=== PATIENT | female | born 1955 | race Caucasian/White ===

== ENCOUNTER 2017-01-21 16:07 | Inpatient (IN) | payer MEDICAID ==
[~2017-01-21] VITALS: Ht 157.5 cm; Wt 102.8 kg
[2017-01-21] MEDS ORDERED: SODIUM CHLORIDE 0.9% 1,000 ML IV ONE (16:42)
[2017-01-21] MEDS ORDERED: SODIUM CHLORIDE 0.9% 1,000ML IVBOLUS ONE (17:00)
[2017-01-21 17:20] LABS: BLOOD UREA NITROGEN 40 mg/dL (7-18)
[2017-01-21 17:29] LABS: IS PT STATUS REG ER OR PRE ER? YES
[2017-01-21 17:35] LABS: DIFF TOTAL CELLS COUNTED 100 CELL DIFF
[2017-01-21 17:36] LABS: VERIFY COUNTS? YES
[2017-01-21 17:37] LABS: ANISOCYTOSIS 1+; HYPOCHROMIA 2+; MICROCYTOSIS 1+; OVALOCYTES 1+; POLYCHROMASIA 1+
[2017-01-21] MEDS ORDERED: NS + 20MEQ KCL 1,000 ML IV SCH (19:23)
[2017-01-21] MEDS ORDERED: GUAIFENESIN/DM 200-20MG, 10ML UDC PO PRN (19:30)
[2017-01-21] MEDS ORDERED: POLYETHYLENE GLYCOL 17 GM PACKET PO PRN (19:30)
[2017-01-21] MEDS ORDERED: ONDANSETRON 2MG/ML, 2ML IVPush PRN (19:30)
[2017-01-21] MEDS ORDERED: morphine SULFATE 10 MG/ML, 1ML IVPush PRN (19:30)
[2017-01-21] MEDS ORDERED: ACETAMINOPHEN 325 MG TABLET PO PRN (19:30)
[2017-01-21] MEDS ORDERED: DOCUSATE 100 MG CAPSULE PO PRN (19:30)
[2017-01-21] MEDS ORDERED: HYDROcodone/APAP 5/325 TABLET PO PRN (19:30)
[2017-01-21] MEDS ORDERED: NAPR500T PO (19:54)
[2017-01-21] MEDS ORDERED: DIPH25CA61 PO (19:54)
[2017-01-21] MEDS ORDERED: RANI300T3 PO (19:54)
[2017-01-21] MEDS ORDERED: LEVO75TA PO (19:54)
[2017-01-21] MEDS ORDERED: HYDR25TA11 PO (19:54)
[2017-01-21] MEDS ORDERED: SIMV40TA3 PO (19:54)
[2017-01-21] MEDS ORDERED: ZOLP10TA PO (19:54)
[2017-01-21] MEDS ORDERED: BUPR150T73 PO (19:54)
[2017-01-21 21:15] VITALS: BP 148/80
[2017-01-21 21:47] VITALS: BP 143/74
[2017-01-21 21:58] VITALS: BP 148/80
[2017-01-21 22:05] VITALS: BP 159/82
[2017-01-21 22:20] VITALS: BP 138/85
[2017-01-21] MEDS: ZOLPIDEM 5MG TABLET PO PRN (23:10)
[2017-01-21] MEDS: FAMOTIDINE 20 MG TABLET PO SCH (23:10)
[2017-01-21 23:15] VITALS: BP 135/86
[2017-01-22] VITALS (7 sets, daily range): BP systolic 105–168; BP diastolic 66–84
[2017-01-22] MEDS: ZOLPIDEM 5MG TABLET PO PRN (00:32)
[2017-01-22 04:35] LABS: BLOOD UREA NITROGEN 28 mg/dL (7-18)
[2017-01-22] MEDS: FAMOTIDINE 20 MG TABLET PO SCH (09:00)
[2017-01-22] MEDS ORDERED: SENNA/DOCUSATE TABLET PO SCH (09:00)
== END 2017-01-22 13:12 | disposition home or self-care (01) | DRG 811 ==
LOC: SUATTDRO 19:06 → ED 19:26 → EDIP 19:30 → 3NW 21:05
PROVIDERS: ADMIT Family Medicine; ATTEND Family Medicine
PROC: 30233N1 Transfusion of Nonautologous Red Blood Cells into Peripheral Vein, Percutaneous Approach (ICD-10-PCS; principal; 2017-01-21)
DX: D50.0 Iron deficiency anemia secondary to blood loss (chronic) (principal); N17.0 Acute kidney failure with tubular necrosis; Z68.41 Body mass index [BMI] 40.0-44.9, adult; Z66 Do not resuscitate; G47.00 Insomnia, unspecified; D75.89 Other specified diseases of blood and blood-forming organs; E66.01 Morbid (severe) obesity due to excess calories
CPT/HCPCS: 36415; 71010; 80048; 82040; 82728; 83540; 83550; 83880; 84466; 84484; 85025; 86850; 86900; 86923; 93005; 99291; J3480; J7030; P9016